=== PATIENT | male | born 1960 | race Caucasian/White ===

== ENCOUNTER 2016-10-13 06:54 | Day surgery (SDC) | payer OTHER ==
[~2016-10-13] VITALS: Ht 165.1 cm; Wt 108.0 kg
[~2016-10-13 06:54] MED LIST: ADAL40PE2; FOLI-49; HYDR25TA6; LISI40TA9; METO-104; VENL100T19; [UNRECOGNIZED DRUG - OTHER]
[2016-10-13] MEDS ORDERED: VIT1TABL65 PO (08:46)
[2016-10-13] MEDS ORDERED: TAMS-14 PO (08:46)
[2016-10-13] MEDS ORDERED: [UNRECOGNIZED DRUG - OTHER] (08:46)
[2016-10-13] MEDS ORDERED: BUPR150T11 PO (08:46)
[2016-10-13] MEDS ORDERED: MELO7.5O PO (08:46)
[2016-10-13] MEDS ORDERED: AMLO-145 PO (08:46)
[2016-10-13] MEDS ORDERED: [UNRECOGNIZED DRUG - OTHER] (08:46)
[2016-10-13] MEDS ORDERED: EMTR1TAB11 PO (08:46)
[2016-10-13 08:50] VITALS: Ht 165.1 cm; Wt 108.0 kg
[2016-10-13 09:05] VITALS: BP 164/88; PULSE 38; RESP 15
[2016-10-13] MEDS ORDERED: PROPOFOL 60 ML ONE (09:07)
[2016-10-13] MEDS ORDERED: LIDOCAINE 2% (SDV) 5 ML INJ ONE (09:07)
[2016-10-13 10:05] VITALS: BP 149/83; PULSE 64; RESP 20
--- NOTE | 2016-10-13 10:49 | GILP ---
DATE OF PROCEDURE: 10/13/2016 NAME OF PROCEDURE: Esophagogastroduodenoscopy. PREOPERATIVE DIAGNOSIS: Patient presenting with history of passing melanotic stool, abdominal disco mfort, rule out bleeding ulcer disease, rule out gastritis, rule out opportunistic infections. POSTOPERATIVE DIAGNOSES: 1. Carlyn of the esophagus. 2. Diffuse mild gastritis. 3. Mild reflux esophagitis. DESCRIPTION OF PROCEDURE: After the informed written consent was obtained, the patient was asked to lie on the left lateral side. Intravenous anesthesia was given by anesthesiologist, Dr. Coulter. When the patient became somnolent, the Olympus video upper endoscope was introduced into the oropha rynx, then into the esophagus. Multiple white patches were noted all along the esophageal mucosal s urface, consistent with Carlyn of the esophagus. Multiple biopsies were obtained. Above the GE ju nction there is a mild reflux esophagitis. Scope at this time was advanced into the stomach. Stoma ch showed evidence of diffuse areas of erythema in a patchy distribution consistent with a mildly di ffuse gastritis. Duodenum was examined, which appeared normal up to the end of the third portion. At this time, biopsy was done from the antrum, the lesser curvature and the fundus to rule out H. py jesse infection. Endoscope at this time was withdrawn and the procedure was terminated. PLAN: Recommend proton pump inhibitor therapy and also recommend Diflucan 100 mg a day for 10 days. Dictated By: KYARA ALBERTS/NTS Conf#: [id number] DID#: [id number] CC: YOSVANY BEACH MD; KYARA ELLIS MD;*EndCC*
--- NOTE | 2016-10-13 10:51 | GILP ---
DATE OF PROCEDURE: 10/13/2016 PROCEDURE: Colonoscopy. PREOPERATIVE DIAGNOSIS: Patient presenting with a history of rectal bleeding, rule out colorectal n eoplasm, arteriovenous malformation, hemorrhoids. POSTOPERATIVE DIAGNOSES: Moderate degree of external hemorrhoids. Rest of the colon appeared nancy l. DESCRIPTION OF PROCEDURE: After the informed written consent was obtained, the patient was asked to lie on the left lateral side. Intravenous anesthesia was given by anesthesiologist, Dr. Coulter. When the patient became somnolent, the Olympus video colonoscope was introduced into the rectum and scope was advanced all the way to the cecum. Entire colon appeared perfectly normal with no mucosa l abnormality, no polyps, no AVM noted. On the way out, retroflexion was performed. Skin tags were noted, but when the scope was withdrawn, a moderate degree of external hemorrhoids were noted and t he procedure was terminated. PLAN: Recommend Anusol-HC suppositories, 1 into the rectum twice a day for 10 days. Dictated By: KYARA ALBERTS/MAGDALENO Conf#: [id number] DID#: [id number] CC: YOSVANY BEACH MD; KYARA ELLIS MD;*EndCC*
== END 2016-10-13 12:57 | disposition home or self-care (01) ==
LOC: GIL 06:54
PROVIDERS: ATTEND Internal Medicine Gastroenterology
DX: B37.81 Candidal esophagitis (principal); K64.4 Residual hemorrhoidal skin tags; I10 Essential (primary) hypertension
CPT/HCPCS: 43239; 45378; 88305; 88312; 88313; Z7610